=== PATIENT | female | born 1955 | race Two or more races ===

== ENCOUNTER 2019-03-05 10:31 | Outpatient (CLI) | payer OTHER | END 2019-03-05 15:48 | disposition home or self-care (01) | LOC: NUCLEAR 10:31 → MRI 10:31 | DX: R55 Syncope and collapse (principal) | CPT/HCPCS: 70545; 70551 ==

== ENCOUNTER 2019-03-05 12:37 | Outpatient (CLI) | payer OTHER | END 2019-03-05 12:46 | disposition home or self-care (01) | LOC: LAB 12:37 | DX: N20.0 Calculus of kidney (principal) ==

== ENCOUNTER → 2024-02-06 12:47 | Outpatient (CLI) | payer OTHER ==
[2024-02-06 14:28] LABS: CREATININE SERUM 0.69 mg/dL (0.55-1.02)
== END | disposition home or self-care (01) ==
LOC: LAB 12:47
PROVIDERS: ATTEND Radiology Diagnostic Radiology
DX: R10.9 Unspecified abdominal pain (principal)

== ENCOUNTER 2024-02-13 09:13 | Outpatient (CLI) | payer OTHER | END 2024-02-13 09:21 | disposition home or self-care (01) | LOC: TOM 09:13 | PROVIDERS: ATTEND Internal Medicine Cardiovascular Disease | DX: R10.9 Unspecified abdominal pain (principal); K57.30 Diverticulosis of large intestine without perforation or abscess without bleeding | CPT/HCPCS: 74177; Q9965 ==